=== PATIENT | female | born 1940 | race Caucasian/White ===

== ENCOUNTER 2017-09-30 06:53 | Observation (INO) | payer MEDICARE ==
[2017-09-26 13:28] LABS: BASOPHILS % 0.3 % (0.0-1.0); EOSINOPHILS # (AUTO) 0.3 (0.0-0.4); EOSINOPHILS % 4.8 % (0.0-6.0); HEMATOCRIT 42.7 % (34.2-44.1); HEMOGLOBIN 13.6 g/dL (12.0-16.0); LYMPHOCYTES # (AUTO) 1.4 (1.0-3.2); LYMPHOCYTES % 19.9 % (18.0-39.1); MEAN CORPUSCULAR HEMOGLOBIN 30.4 pg (28-32); MEAN CORPUSCULAR HGB CONC 31.9 g/dL (31-35); MEAN CORPUSCULAR VOLUME 95.3 fL (81-99); MONOCYTES # (AUTO) 0.7 (0.2-0.8); MONOCYTES % 10.2 % (4.4-11.3); NEUTROPHILS # (AUTO) 4.4 (2.1-6.9); NEUTROPHILS % 64.5 % (38.7-80.0); PLATELET COUNT 207 x10e3/uL (140-360); RED BLOOD COUNT 4.48 x10e6/uL (3.6-5.1); RED CELL DISTRIBUTION WIDTH 16.2 % (11.7-14.4)
--- NOTE | 2017-09-26 13:29 | Diagnostic Imaging Report ---
PROCEDURE: X-RAY CHEST, TWO VIEWS COMPARISON: [facility], DX, CHEST 2 VIEWS, 05/23/2009, 11:00. INDICATIONS: MASTECTOMY TUESDAY FINDINGS: LUNGS: Lateral images are compromised due to motion. Subsegmental atelectasis in the base of the right lung has resolved. No consolidations or edema. PLEURA: Mild eventration of the right diaphragm is stable. No effusions or pneumothorax. HEART \T\ MEDIASTINUM: The heart is mildly enlarged. Pulmonary vascular markings are normal. BONES \T\ SOFT TISSUES: No focal osseous lesions. Degenerative changes of the spine are stable. A spinal stimulator is present. Soft tissues are unremarkable. CONCLUSION: Mild cardiomegaly without vascular congestion. 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 Dictated by: Hesham Garcia M.D. on 09/26/2017 at 13:29 Electronically approved by: Hesham Garcia M.D. on 09/26/2017 at 13:29
[2017-09-26 13:45] LABS: ANION GAP 15.8 mmol/L (8-16); BLOOD UREA NITROGEN 18 mg/dL (7-26); BUN/CREATININE RATIO 21 (6-25); CALCIUM 10.6 mg/dL (8.4-10.2); CARBON DIOXIDE 28 mmol/L (22-29); CHLORIDE 100 mmol/L (98-107); CREATININE, SERUM 0.85 mg/dL (0.57-1.11); EST GLOMERULAR FILTRATION RATE > 60 ML/MIN (60-); GLUCOSE 89 mg/dL (74-118); POTASSIUM 4.8 mmol/L (3.5-5.1); SODIUM 139 mmol/L (136-145)
[~2017-09-30] VITALS: Ht 162.6 cm; Wt 118.1 kg
[~2017-09-30 06:53] MED LIST: BROVANA15 MCG/2 M INH; COMBIVENT RESPIM4 GM IH; ELIQUIS PO; FUROSEMIDE40 MG PO; GABAPENTIN100 MG PO; LEXAPRO10 MG PO; LYRICA75 MG PO; METOPROLOL SUCC25 MG PO; NORCO 10-325 T1 EACH PO; PANTOPRAZOLE SO40 MG PO; POTASSIUM CHLO10 ME1 PO; PRAMIPEXOLE DIHY1 MG PO; PRAVASTATIN SOD40 MG PO
--- OUTSIDE RECORDS SUMMARY | 2017-09-30 06:55 | XMS REPORT ---
[facility] Address Unknown Phone Unavailable Care Team Providers Care Courier Name Role Phone JOSEPH WILLIAMSON Unavailable Unavailable Problems This patient has no known problems. Allergies, Adverse Reactions, Alerts This patient has no known allergies or adverse reactions. Medications This patient has no known medications. Results Test Description Test Time Test Comments Text Results Atomic Results Result Comments CHEST 2 VIEWS [place] [address] Patient Name: ALEXANDRA FERRIS MR #: [id number] : 1940 Age/Sex: 77/F Req #: [id number] Adm Physician: Ordered by: JOSEPH WILLIAMSON MD Report #: [id number] Location: OR Room/Bed: Procedure: [id number] DX/CHEST 2 VIEWS Exam Date: Exam Time: REPORT STATUS: Signed PROCEDURE: X-RAY CHEST, TWO VIEWS COMPARISON: [facility], DX, CHEST 2 VIEWS, 05/23/2009, 11:00. INDICATIONS : MASTECTOMY TUESDAY FINDINGS: LUNGS: Lateral images are compromised due to motion. Subsegmental atelectasis in the base of the right lung has resolved. No consolidations or edema. PLEURA: Mild eventration of the right diaphragm is stable. No effusions or pneumothorax. HEART T MEDIASTINUM: The heart is mildly enlarged. Pulmonary vascular markings are normal. BONES T SOFT TISSUES: No focal osseous lesions. Degenerative changes of the spine are stable. A spinal stimulator is present. Soft tissues are unremarkable. CONCLUSION: Mild cardiomegaly without vascular congestion. 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 Dictated by: John Garcia M.D. on 09/26/2017 at 13:29 Electronically approved by: John Garcia M.D. on 09/26/2017 at 13:29 Dictated By: JOHN GARCIA MD [id number] Transcribed By: MISA on 09/26/17 1329 COPY TO: JOSEPH WILLIAMSON MD
[2017-09-30] MEDS ORDERED: ONDANSETRON HCL INJ 2 MG/ML VIAL IV PRN (11:45)
[2017-09-30] MEDS ORDERED: HYDROMORPHONE 1MG/1ML INJ ONE ×2 (11:52→12:00)
[2017-09-30 12:30] VITALS: BP 122/69
[2017-09-30 12:49] VITALS: BP 122/69
[2017-09-30] MEDS: PREGABALIN 75 MG CAP PO SCH ×3 (13:00→20:20)
[2017-09-30] MEDS: SODIUM CHLORIDE 0.9% 1000ML 1,000 ML IV SCH ×2 (13:09→21:14)
[2017-09-30] MEDS: CLINDAMYCIN 600MG/D5W 50ML 50 ML IV SCH ×2 (13:27→21:14)
[2017-09-30] MEDS: GABAPENTIN 100 MG CAP PO SCH ×2 (15:00→20:20)
--- NOTE | 2017-09-30 15:04 | Operative Report ---
DATE OF PROCEDURE: September 30, 2017 CUSTOMER GREETER: SATYA Anderson PREOPERATIVE DIAGNOSIS: Carcinoma of the left breast. POSTOPERATIVE DIAGNOSIS: Carcinoma of the left breast. OPERATION PERFORMED: Left total mastectomy. ANESTHESIA: General. COMPLICATIONS: None. ESTIMATED BLOOD LOSS: 100 mL. DESCRIPTION OF PROCEDURE: With the patient lying in bed in the supine position under good general anesthesia, the left chest and breast were prepped with Betadine solution and draped in the usual manner. An elliptical incision was made to include the nipple-areolar complex. The incision had to be extended laterally a lot more than normal because the patient had a large fat pad and breast that was actually in the axilla itself. The incision was then deepened into the subcutaneous tissue and the fascial plane was identified and flaps were then developed circumferentially medially to the sternum, superiorly to the clavicle, inferiorly to the rectus fascia, and laterally to the latissimus. Incision was then deepened all the way down to the pectoralis fascia and the breast tissue was taken off the pectoralis fascia and all the way laterally and was totally and completely removed and sent for pathological examination. The whole area was thoroughly irrigated. Perfect hemostasis was ascertained. Two drains were left, one in the pectoral region and the other one in the axillary region, 10 flat Brian-Eric, brought out through separate stab wound incisions, and sutured to the skin with 2-0 silk and the wounds were then closed with interrupted vertical mattress sutures of 2-0 and 3-0 silk. Dressings were applied. The sponge, lap, and needle count was correct. Patient tolerated the procedure well and returned to the recovery room in stable condition. Job#: [id number] VAS
[2017-09-30 16:01] VITALS: BP 120/62
[2017-09-30] MEDS: FUROSEMIDE 40 MG TAB PO SCH (17:00)
[2017-09-30] MEDS: METOPROLOL SUCCINATE 25 MG TAB XL PO SCH (17:00)
[2017-09-30] MEDS: HYDROCODONE/APAP 7.5MG-325MG 1 EA TAB PO PRN ×2 (17:27→23:32)
[2017-09-30] MEDS ORDERED: PHENYLEPHRINE HCL 1% 10 MG/ML VIAL ONE (18:06)
[2017-09-30] MEDS ORDERED: SEVOFLURANE INHAL SOLN 250 ML PEN BTL ONE (18:06)
[2017-09-30] MEDS ORDERED: PROPOFOL IV EMULSION 10 MG/ML 20 ML VIAL ONE (18:06)
[2017-09-30] MEDS ORDERED: DEXAMETHASONE SOD PHOS INJ 4 MG/ML VIAL ONE (18:06)
[2017-09-30] MEDS ORDERED: NEOSTIGMINE 5 MG/5ML SYR ONE (18:06)
[2017-09-30] MEDS ORDERED: ROCURONIUM BROMIDE 10 MG/ML 5ML VIAL ONE (18:06)
[2017-09-30] MEDS ORDERED: ACETAMINOPHEN 1000 MG/100 ML IV ONE (18:06)
[2017-09-30] MEDS ORDERED: GLYCOPYRROLATE INJ 1MG/ 5 ML SYR ONE (18:06)
[2017-09-30] MEDS ORDERED: ONDANSETRON HCL INJ 2 MG/ML VIAL ONE (18:06)
[2017-09-30] MEDS ORDERED: LIDOCAINE HCL 2% LOCAL INJ 5 ML SDV VIAL INJ ONE (18:06)
[2017-09-30] MEDS ORDERED: FENTANYL CITRATE/PF 100MCG/2 ML INJ ONE (18:18)
[2017-09-30] MEDS ORDERED: MIDAZOLAM HCL 2 MG/2 ML VIAL ONE (18:18)
[2017-09-30] MEDS: ACETAMINOPHEN 1000 MG/100 ML IV PRN (18:19)
[2017-09-30 19:48] VITALS: BP 96/53
[2017-09-30 19:49] VITALS: BP 96/53
[2017-09-30] MEDS ORDERED: PRAMIPEXOLE DIHYDROCHLORIDE 1 MG TAB PO SCH (21:00)
[2017-10-01] VITALS: BP 108/57
[2017-10-01 04:00] VITALS: BP 100/57
[2017-10-01] MEDS: HYDROCODONE/APAP 7.5MG-325MG 1 EA TAB PO PRN (05:56)
[2017-10-01 08:11] VITALS: BP 106/60
[2017-10-01] MEDS: PREGABALIN 75 MG CAP PO SCH (08:49)
[2017-10-01] MEDS: GABAPENTIN 100 MG CAP PO SCH (08:49)
[2017-10-01] MEDS: METOPROLOL SUCCINATE 25 MG TAB XL PO SCH (08:49)
[2017-10-01] MEDS: FUROSEMIDE 40 MG TAB PO SCH (08:49)
[2017-10-01] MEDS ORDERED: ESCITALOPRAM OXALATE 10 MG TAB PO SCH (09:00)
[2017-10-01] MEDS ORDERED: POTASSIUM CHLORIDE 10 MEQ TABCR PO SCH (09:00)
[2017-10-01] MEDS ORDERED: PANTOPRAZOLE SOD 40 MG TABEC PO SCH (09:00)
[2017-10-01] MEDS: ACETAMINOPHEN 1000 MG/100 ML IV PRN (11:22)
[2017-10-01 12:09] VITALS: BP 95/50
== END 2017-10-01 14:00 | disposition home or self-care (01) ==
LOC: OR 06:53 → IMCU 12:41
PROVIDERS: ADMIT Surgery; ATTEND Surgery
DX: D05.12 Intraductal carcinoma in situ of left breast (principal); I10 Essential (primary) hypertension; I48.91 Unspecified atrial fibrillation
CPT/HCPCS: 19303; 36415; 71046; 80048; 85025; 88307; 93005; G0378 ×2; J1100; J1170; J2001; J2250; J2370; J2405; J7030